=== PATIENT | female | born 1945 | race Caucasian/White ===

== ENCOUNTER 2017-06-02 16:54 | Emergency (ER) | payer OTHER ==
[~2017-06-02] VITALS: Ht 157.5 cm; Wt 129.3 kg
[2017-06-02] MEDS: ONDANSETRON HCL 4 MG/2 ML VIAL IV ONE (18:15)
[2017-06-02] MEDS: MORPHINE SULF INJ 2 MG/ML SYRINGE 1ML IV ONE (18:15)
[2017-06-02] MEDS: buPROPion HCL 100 MG TAB PO ONE (18:15)
[2017-06-02] MEDS: LORazepam 2MG/ML-1ML VIAL IV ONE (18:15)
[2017-06-02 19:38] LABS: Basophils # (auto) 0 uL; Basophils % (auto) 0.6 % (0.0-2.0); Eosinophils # (auto) 0.3 uL; Eosinophils % (auto) 3.2 % (0.0-7.0); Hematocrit 42.8 % (36.0-46.0); Hemoglobin 13.7 g/dL (12.2-16.2); Lymphocytes # (auto) 1.4 uL; Lymphocytes % (auto) 16.1 % (10.0-50.0); Mean Corpuscular Hemoglobin 28.4 pg (28.0-32.0); Mean Corpuscular Hgb Conc. 31.9 g/dL (32.0-36.0); Mean Corpuscular Volume 88.9 fL (80.0-100.0); Mean Platelet Volume 8.6 fL (6.9-10.8); Monocytes # (auto) 0.7 uL; Monocytes % (auto) 8.8 % (0.0-12.0); Neutrophils # (auto) 6.1 uL; Neutrophils % (auto) 71.3 % (37.0-80.0); Platelet Count (auto) 173 10^3/uL (140-450); Red Cell Distribution Width 14.9 % (11.8-14.3); White Blood Cell 8.5 10^3/uL (4.4-10.8)
[2017-06-02 19:56] LABS: Albumin 3.4 g/dL (3.4-5.0); BUN/Creatinine Ratio 21.8; Calcium 8.6 mg/dL (8.5-10.1)
[2017-06-02 19:58] LABS: Bilirubin, Total 0.7 mg/dL (0.2-1.0); Total Protein 7.3 g/dL (6.4-8.2)
[2017-06-02 20:09] LABS: B-Type Natriuretic Peptide 39.17 pg/mL (0-100)
[2017-06-02 20:21] LABS: Temperature: 22.4 C (20.0-25.0)
[2017-06-02] MEDS: HYDROcodone-ACET 10/325MG TAB PO ONE (23:20)
[2017-06-03 03:23] VITALS: BP 105/58
== END 2017-06-03 03:38 | disposition home or self-care (01) ==
LOC: ER 17:04
DX: M17.0 Bilateral primary osteoarthritis of knee (principal); R53.1 Weakness; I50.9 Heart failure, unspecified; E11.9 Type 2 diabetes mellitus without complications; M54.9 Dorsalgia, unspecified; G89.29 Other chronic pain; J45.909 Unspecified asthma, uncomplicated; Z88.1 Allergy status to other antibiotic agents
CPT/HCPCS: 36415; 51702; 71010; 80053; 83880; 84484; 85025; 85379; 87040; 93005; 93970; 96374; 96375; 99291; J2060; J2270; J2405